=== PATIENT | male | born 1940 ===

== ENCOUNTER 2020-12-05 12:07 | Emergency (ER) | payer MEDICARE ==
[2020-12-05] MEDS ORDERED: SODIUM CHLORIDE 0.9% 500 ML 500 ML IV NR (12:22)
[2020-12-05] MEDS ORDERED: LIDOCAINE (1%) 10 MG/1 ML VIAL 20 ML MDV INFILTRATI NR (12:22)
--- NOTE | 2020-12-05 12:25 | Emergency Department Report ---
ED General Adult HPI - General Chief complaint: Fall Stated complaint: RT EYE LACERATION/FALL PUI?: No Time Seen by Provider: 12/05/20 12:12 Source: patient, EMS (Verbal report received from emergency medical services. E MS documentation not available at time of chart dictation ), RN notes reviewed, old records reviewed Mode of arrival: Stretcher Limitations: Other (Patient is a poor historian and demented) - History of Present Illness Initial comments: The patient was evaluated in the emergency department for symptoms described in the history of present illness. He/she was evaluated in the context of the global COVID-19 pandemic, which necessitated consideration that the patient might be at risk for infection with the virus that causes COVID-19. Institutional protocols and algorithms that pertain to the evaluation of patients at risk for COVID-19 are in a state of rapid change based on information released by regulatory bodies including the CDC and federal and state organizations. These policies and algorithms were followed during the patient's care in the emergency department. Please note that these policies, procedures and recommendations changed on a rapid basis. Please note this patient has an alternative medical record number; [id number] Primary CARE doctor: Dr. Jed Will Past medical history: Renal insufficiency, Alzheimer's dementia with behavioral disturbance. Additional past medical history includes stroke, hemiplegia, aphasia, dysphagia, colonic neoplasm, hypokalemia, depression, restlessness, cognitive deficit, glaucoma The patient is a 80-year-old gentleman. He is sent to the hospital by a local skilled nursing, [facility], for evaluation of unwitnessed fall. The patient is awake, nonverbal, and is not able to answer yes no questions, open ended questions or close ended questions. Patient was here yesterday under the aforementioned medical record number, for fall. As per collateral information from nursing services manager at the aforementioned facility, patient is typically bedbound, and not able to complete activities of daily living without significant assistance. However, she does not describe a dramatic decline in functional status recently, and she endorses no fever, cough, nausea, vomiting, diarrhea. Patient is demented, nonverbal, therefore, he is not able to describe the qualitative nature of her symptoms, exacerbating factors, relieving factors, or aggravating factors. Please see the patient's discharge summary from 2019 from his most recent hospital discharge. -: This morning Location: head Radiation: other Severity scale (0 -10): 0 Quality: other Consistency: other Improves with: other Worsens with: other Associated Symptoms: other - Related Data Allergies Allergy/AdvReac Type Severity Reaction Status Date / Time No Known Allergies Allergy Unverified 12/05/20 12:29 ED Review of Systems ROS: Stated complaint: RT EYE LACERATION/FALL Other details as noted in HPI Comment: Unobtainable due to pts medical conditions (Review of systems as per nursing team at nursing facility) ED Past Medical Hx - Social History Smoking Status: Unknown if ever smoked ED Physical Exam - General Limitations: Other (Patient is awake, nonverbal, poor historian and demented) General appearance: in no apparent distress - Head Head exam: Present: normocephalic, other (There is a right supraorbital hematoma and laceration) - Eye Eye exam: Present: normal appearance, PERRL - ENT ENT exam: Present: mucous membranes moist, TM's normal bilaterally, normal external ear exam, other (There is no nasal septal hematoma. There is no hemotympanum) - Neck Neck exam: Present: normal inspection. Absent: tenderness, meningismus - Respiratory Respiratory exam: Present: normal lung sounds bilaterally, decreased breath sounds. Absent: respiratory distress - Cardiovascular Cardiovascular Exam: Present: normal rhythm, bradycardia, normal heart sounds. Absent: tachycardia, irregular rhythm, systolic murmur, diastolic murmur, rubs, gallop - GI/Abdominal GI/Abdominal exam: Present: soft. Absent: distended, tenderness, guarding, rebound, rigid, pulsatile mass - Rectal Rectal exam: Present: deferred - Extremities Exam Extremities exam: Present: normal inspection, pedal edema (1+ edema bilateral lower extremities), other (2+ pulses noted in the bilateral upper and lower extremities. There is no palpable cord. negative Homans sign. Muscular compartments are soft. The pelvis is stable.). Absent: calf tenderness - Back Exam Back exam: Present: normal inspection. Absent: tenderness, CVA tenderness (R), CVA tenderness (L), paraspinal tenderness, vertebral tenderness - Neurological Exam Neurological exam: Present: altered (The patient is awake. The patient is nonverbal. There is no obvious facial droop.), other (Detailed neurologic examination limited secondary to patient's inability to communicate and underlying dementia.) - Psychiatric Psychiatric exam: Present: other (The patient is nonverbal) - Skin Skin exam: Present: warm, abrasion, ecchymosis, other (Right supraorbital abrasion and ecchymosis) ED Course Vital Signs 12/05/20 12/05/20 12/05/20 12:20 12:21 12:28 Temperature 97.7 F Pulse Rate 56 L 55 L Respiratory 12 16 16 Rate Blood Pressure 117/41 [Left] O2 Sat by Pulse 100 100 Oximetry O2 Sat by Pulse Oximetry [ Digit-Finger] 12/05/20 13:51 Temperature Pulse Rate Respiratory Rate Blood Pressure [Left] O2 Sat by Pulse Oximetry O2 Sat by Pulse 99 Oximetry [ Digit-Finger] - Reevaluation(s) Reevaluation #1: 12/05/20 13:06 Differential diagnosis, including but not limited to: Fall, closed head injury, intracranial injury, spinal injury, pneumonia, urinary tract infection, electrolyte derangement, renal insufficiency, elevated CK, dementia Assessment and plan: 80-year-old gentleman, status post unwitnessed fall, who is afebrile with reassuring vital signs, protecting airway, does not appear to be in any acute distress. This is reportedly his second fall within the past 24 hours. We will obtain appropriate laboratory studies to exclude metabolic crisis, thyroid issue, urinary tract infection etc. We will obtain CT scan of the brain and cervical spine. We will obtain x-ray the chest, and pelvis. Laceration has been repaired by myself. Reassess after initial data points. Reevaluation #2: 12/05/20 14:45 Patient observed in this ER for hours without clinical decompensation. Noncontrast CT scan of the brain and cervical spine negative for acute findings. X-ray of the pelvis, chest negative for acute findings. Laboratory studies unremarkable and nonactionable at this time. Patient resting comfortably on a stretcher, and in no acute distress. Patient required a thorough medical evaluation after complaint of recurrent fall, and after appropriate imaging studies, and screening laboratory studies, it does not appear that an emergent condition has been identified at this time which would require inpatient hospitalization or admission. - Laceration /Wound Repair Right Upper Lateral Eye Wound Location: face Wound Length (cm): 1 Wound's Depth, Shape: stellate Wound Explored: no foreign body removed Irrigated w/ Saline (ccs): 250 Anesthesia: 1% Lidocaine Volume Anesthetic (ccs): 3 Wound Repaired With: sutures Suture Size/Type: 5:0 (Monofilament, interrupted) Number of Sutures: 3 Layer Closure?: No Sterile Dressing Applied?: Yes - Pulse Oximetry Interpretation Digit-Finger Initial Pulse Oximetry Readin O2 Sat by Pulse Oximetry: 99 Actions Taken: none ED Medical Decision Making - Lab Data Result diagrams: 12/05/20 12:39 12/05/20 12:39 Vital Signs (72 hours) 12/05/20 12/05/20 12/05/20 12:20 12:21 12:28 Temperature 97.7 F Pulse Rate 56 L 55 L Respiratory 12 16 16 Rate Blood Pressure 117/41 [Left] O2 Sat by Pulse 100 100 Oximetry Lab Results 12/05/20 Range/Units 12:39 WBC 3.5 L (4.5-11.0) K/mm3 RBC 3.58 L (3.65-5.03) M/mm3 Hgb 11.2 L (11.8-15.2) gm/dl Hct 34.3 L (35.5-45.6) % MCV 96 H (84-94) fl MCH 31 (28-32) pg MCHC 33 (32-34) % RDW 14.5 (13.2-15.2) % Plt Count 305 (140-440) K/mm3 Lab Results 12/05/20 12/05/20 12/05/20 Range/Units 12:05 12:39 12:39 WBC (4.5-11.0) K/mm3 RBC (3.65-5.03) M/mm3 Hgb (11.8-15.2) gm/dl Hct (35.5-45.6) % MCV (84-94) fl MCH (28-32) pg MCHC (32-34) % RDW (13.2-15.2) % Plt Count (140-440) K/mm3 PT 13.3 (12.2-14.9) Sec. INR 1.03 (0.87-1.13) APTT 32.3 (24.2-36.6) Sec. Sodium 143 (137-145) mmol/L Potassium 5.0 (3.6-5.0) mmol/L Chloride 108.5 H (98-107) mmol/L Carbon Dioxide 27 (22-30) mmol/L Anion Gap 13 mmol/L BUN 23 H (9-20) mg/dL Creatinine 1.2 (0.8-1.3) mg/dL Estimated GFR 58 ml/min BUN/Creatinine Ratio 19 % Glucose 100 (75-100) mg/dL Calcium 8.9 (8.4-10.2) mg/dL Magnesium (1.7-2.3) mg/dL Total Bilirubin 0.40 (0.1-1.2) mg/dL AST 44 H (5-40) units/L ALT 39 (7-56) units/L Alkaline Phosphatase 135 H (35-129) units/L Total Creatine Kinase (55-170) units/L Total Protein 7.1 (6.3-8.2) g/dL Albumin 3.6 L (3.9-5) g/dL Albumin/Globulin Ratio 1.0 % TSH (0.270-4.200) mlU/mL Urine Color Yellow (Yellow) Urine Turbidity Clear (Clear) Urine pH 5.0 (5.0-7.0) Ur Specific [place] 1.016 (1.003-1.030) Urine Protein <15 mg/dl (Negative) mg/dL Urine Glucose (UA) Neg (Negative) mg/dL Urine Ketones Neg (Negative) mg/dL Urine Blood Neg (Negative) Urine Nitrite Neg (Negative) Urine Bilirubin Neg (Negative) Urine Urobilinogen < 2.0 (<2.0) mg/dL Ur Leukocyte Esterase Neg (Negative) Urine WBC (Auto) 1.0 (0.0-6.0) /HPF Urine RBC (Auto) 2.0 (0.0-6.0) /HPF Urine Mucus Few /HPF Salicylates (2.8-20.0) mg/dL Acetaminophen (10.0-30.0) ug/mL 12/05/20 12/05/20 12/05/20 Range/Units 12:39 12:39 12:39 WBC 3.5 L (4.5-11.0) K/mm3 RBC 3.58 L (3.65-5.03) M/mm3 Hgb 11.2 L (11.8-15.2) gm/dl Hct 34.3 L (35.5-45.6) % MCV 96 H (84-94) fl MCH 31 (28-32) pg MCHC 33 (32-34) % RDW 14.5 (13.2-15.2) % Plt Count 305 (140-440) K/mm3 PT (12.2-14.9) Sec. INR (0.87-1.13) APTT (24.2-36.6) Sec. Sodium (137-145) mmol/L Potassium (3.6-5.0) mmol/L Chloride (98-107) mmol/L Carbon Dioxide (22-30) mmol/L Anion Gap mmol/L BUN (9-20) mg/dL Creatinine (0.8-1.3) mg/dL Estimated GFR ml/min BUN/Creatinine Ratio % Glucose (75-100) mg/dL Calcium (8.4-10.2) mg/dL Magnesium 2.40 H (1.7-2.3) mg/dL Total Bilirubin (0.1-1.2) mg/dL AST (5-40) units/L ALT (7-56) units/L Alkaline Phosphatase (35-129) units/L Total Creatine Kinase 217 H (55-170) units/L Total Protein (6.3-8.2) g/dL Albumin (3.9-5) g/dL Albumin/Globulin Ratio % TSH 3.650 (0.270-4.200) mlU/mL Urine Color (Yellow) Urine Turbidity (Clear) Urine pH (5.0-7.0) Ur Specific [place] (1.003-1.030) Urine Protein (Negative) mg/dL Urine Glucose (UA) (Negative) mg/dL Urine Ketones (Negative) mg/dL Urine Blood (Negative) Urine Nitrite (Negative) Urine Bilirubin (Negative) Urine Urobilinogen (<2.0) mg/dL Ur Leukocyte Esterase (Negative) Urine WBC (Auto) (0.0-6.0) /HPF Urine RBC (Auto) (0.0-6.0) /HPF Urine Mucus /HPF Salicylates (2.8-20.0) mg/dL Acetaminophen (10.0-30.0) ug/mL 12/05/20 12/05/20 Range/Units 12:39 12:39 WBC (4.5-11.0) K/mm3 RBC (3.65-5.03) M/mm3 Hgb (11.8-15.2) gm/dl Hct (35.5-45.6) % MCV (84-94) fl MCH (28-32) pg MCHC (32-34) % RDW (13.2-15.2) % Plt Count (140-440) K/mm3 PT (12.2-14.9) Sec. INR (0.87-1.13) APTT (24.2-36.6) Sec. Sodium (137-145) mmol/L Potassium (3.6-5.0) mmol/L Chloride (98-107) mmol/L Carbon Dioxide (22-30) mmol/L Anion Gap mmol/L BUN (9-20) mg/dL Creatinine (0.8-1.3) mg/dL Estimated GFR ml/min BUN/Creatinine Ratio % Glucose (75-100) mg/dL Calcium (8.4-10.2) mg/dL Magnesium (1.7-2.3) mg/dL Total Bilirubin (0.1-1.2) mg/dL AST (5-40) units/L ALT (7-56) units/L Alkaline Phosphatase (35-129) units/L Total Creatine Kinase (55-170) units/L Total Protein (6.3-8.2) g/dL Albumin (3.9-5) g/dL Albumin/Globulin Ratio % TSH (0.270-4.200) mlU/mL Urine Color (Yellow) Urine Turbidity (Clear) Urine pH (5.0-7.0) Ur Specific [place] (1.003-1.030) Urine Protein (Negative) mg/dL Urine Glucose (UA) (Negative) mg/dL Urine Ketones (Negative) mg/dL Urine Blood (Negative) Urine Nitrite (Negative) Urine Bilirubin (Negative) Urine Urobilinogen (<2.0) mg/dL Ur Leukocyte Esterase (Negative) Urine WBC (Auto) (0.0-6.0) /HPF Urine RBC (Auto) (0.0-6.0) /HPF Urine Mucus /HPF Salicylates < 0.3 L (2.8-20.0) mg/dL Acetaminophen 5.0 L (10.0-30.0) ug/mL - EKG Data -: EKG Interpreted by [place] EKG shows normal: sinus rhythm Rate: bradycardia - EKG Data 12/05/20 13:05 EKG interpreted at 12: 35 Sinus rhythm, bradycardia, 49 bpm. Left ventricular hypertrophy, first-degree AV block, IA interval 250 ms. QTc 426 ms. Poor R wave progression. This is an abnormal EKG. This is not a STEMI. Appears to be unchanged when compared to prior EKG from May 2020 - Radiology Data Radiology results: pending, report reviewed, image reviewed Noncontrast CT scan of the brain and cervical spine negative for acute findings. CT CERVICAL SPINE WITHOUT CONTRAST INDICATION: Neck pain after fall. TECHNIQUE: Axial CT images of the spine were obtained. Sagittal and coronal reformatted images were produced. All CT scans at this location are performed using CT dose reduction for ALARA by means of automated exposure control. COMPARISON: Prior CT on 12/04/2020 FINDINGS: ACUTE FRACTURE(S) OR SUBLUXATION: None. SPINAL DEGENERATIVE CHANGES: Similar advanced degenerative change at the atlantodental articulation with likely partial fusion of the anterior arch of C1 and the dens. Unchanged mild generalized spondylosis in the remainder of the cervical spine. PARASPINAL SOFT TISSUES: No soft tissue swelling or other acute abnormalities. ADDITIONAL FINDINGS: There is atherosclerotic calcification in the carotid bulbs bilaterally. IMPRESSION: 1. No acute fracture or subluxation in the spine in neutral position. Signer Name: Sivakumar Fulton MD Signed: 12/05/2020 12:33 PM Workstation Name: Whereoscope CT head/brain wo con INDICATION: Fall. Head pain TECHNIQUE: Routine CT head without contrast. All CT scans at this location are performed using CT dose reduction for ALARA by means of automated exposure control. COMPARISON: Head CT on 12/04/2020 FINDINGS: BRAIN / INTRACRANIAL CONTENTS: No acute hemorrhage, brain edema, mass effect, or hydrocephalus. Normal turpin-white differentiation. Stable moderate global brain atrophy. CALVARIUM/SKULL BASE/CRANIOCERVICAL JUNCTION: No evidence of fracture. ORBITS: No significant abnormality of visua lized orbits. SINUSES / MASTOIDS: Stable chronic opacification right frontal sinus. ADDITIONAL FINDINGS: None. IMPRESSION: 1. No acute intracranial abnormality. No adverse change from the prior exam. Signer Name: Sivakumar Fulton MD Signed: 12/05/2020 12:29 PM Workstation Name: Whereoscope CHEST 1 VIEW INDICATION: fall weakness. COMPARISON: 06/16/2020 FINDINGS: Support devices: None. Heart: Within normal limits. Lungs/Pleura: No acute air space or interstitial disease. Additional findings: No obvious thoracic fracture. IMPRESSION: No acute findings. PELVIS 2 VIEWS INDICATION: fall wea kness. COMPARISON: None. IMPRESSION: No acute osseous injury or diastasis is identified. Normal articulation at both hips. Mild to moderate degenerative changes are noted in the lower lumbar spine and SI joints. Signer Name: Vladimir Mane Jr, MD Signed: 12/05/2020 1:13 PM Workstation Name: [id number] CHEST 1 VIEW INDICATION: fall weakness. COMPARISON: 06/16/2020 FINDINGS: Support devices: None. Heart: Within normal limits. Lungs/Pleura: No acute air space or interstitial disease. Additional findings: No obvious thoracic fracture. IMPRESSION: No acute findings. PELVIS 2 VIEWS INDICATION: fall weakness. COMPARISON: None. IMPRESSION: No acute osseous injury or diastasis is identified. Normal articulation at both hips. Mild to moderate degenerative changes are noted in the lower lumbar spine and SI joints. Signer Name: Vladimir Mane Jr, MD Signed: 12/05/2020 1:13 PM Workstation Name: [id number] Critical care attestation.: If time is entered above; I have spent that time in minutes in the direct care of this critically ill patient, excluding procedure time. ED Disposition Clinical Impression: History of dementia Closed head injury Qualifiers: Encounter type: initial encounter Qualified Code(s): S09.90XA - Unspecified injury of head, initial encounter Fall Qualifiers: Encounter type: initial encounter Qualified Code(s): W19.XXXA - Unspecified fall, initial encounter Laceration of forehead Qualifiers: Encounter type: initial encounter Qualified Code(s): S01.81XA - Laceration without foreign body of other part of head, initial encounter Disposition: DC/TX-70 ANOTHER TYPE HLTHCARE Is pt being admited?: No Does the pt Need Aspirin: No Condition: Good Additional Instructions: We recommend that fall precautions be initiated for this patient while in his personal penitentiary/skilled nursing at all times. Please have a primary care doctor contact medical records department within the next week to follow-up on nonemergent incidental abnormal findings in terms of laboratory studies and radiology studies. Patient may wash forehead abrasion and laceration with gentle soap and water once every 12-24 hours. Bacitracin may be applied o [id number] to the right forehead abrasion once every 24 hours, for 5 to 7 days, taking care to not apply bacitracin to the eyes. Recommend that patient's forehead laceration/sutures be removed in the next 5 days. Patient may follow- up with his primary care doctor, return to the emergency room, or follow-up at an urgent care center for this. Please return to the emergency room right away with new pain, worsened pain, migration of pain, projectile vomiting, change in mental status, confusion, inability to tolerate liquid feeds, new, worsened or different symptoms not present on the initial emergency room evaluation. Referrals: JED WILL MD [Primary Care Provider] - 3-5 Days Time of Disposition: 14:46 (Discharge back to skilled nursing)
[2020-12-05] MEDS ORDERED: SODIUM CHLORIDE IRRI 500 ML 500 ML IR ONE (12:33)
[2020-12-05 12:59] LABS: Hematocrit 34.3 % (35.5-45.6); Hemoglobin 11.2 gm/dl (11.8-15.2); Mean Corpuscular HGB Conc 33 % (32-34); Mean Corpuscular Volume 96 fl (84-94); Platelet Count 305 K/mm3 (140-440); Red Blood Count 3.58 M/mm3 (3.65-5.03); Red Cell Distribution Width 14.5 % (13.2-15.2)
[2020-12-05 13:10] LABS: INR 1.03 (0.87-1.13); Partial Thromboplastin Time 32.3 Sec. (24.2-36.6)
[2020-12-05 13:22] LABS: Albumin 3.6 g/dL (3.9-5); Calcium 8.9 mg/dL (8.4-10.2)
[2020-12-05] MEDS ORDERED: TETANUS,DIPH,PERTUSS(ACELL) VACCINE 0.5 ML SYRINGE IM ONE (13:30)
--- NOTE | 2020-12-05 13:34 | Cat Scan Report ---
CT head/brain wo con INDICATION: Fall. Head pain TECHNIQUE: Routine CT head without contrast. All CT scans at this location are performed using CT dose reduction for ALARA by means of automated exposure control. COMPARISON: Head CT on 12/04/2020 FINDINGS: BRAIN / INTRACRANIAL CONTENTS: No acute hemorrhage, brain edema, mass effect, or hydrocephalus. Angie l turpin-white differentiation. Stable moderate global brain atrophy. CALVARIUM/SKULL BASE/CRANIOCERVICAL JUNCTION: No evidence of fracture. ORBITS: No significant abnormality of visualized orbits. SINUSES / MASTOIDS: Stable chronic opacification right frontal sinus. ADDITIONAL FINDINGS: None. IMPRESSION: 1. No acute intracranial abnormality. No adverse change from the prior exam. Signer Name: Sivakumar Fulton MD Signed: 12/05/2020 1:29 PM Workstation Name: [id number]
--- NOTE | 2020-12-05 13:38 | Cat Scan Report ---
CT CERVICAL SPINE WITHOUT CONTRAST INDICATION: Neck pain after fall. TECHNIQUE: Axial CT images of the spine were obtained. Sagittal and coronal reformatted images were produced. Al l CT scans at this location are performed using CT dose reduction for ALARA by means of automated exp osure control. COMPARISON: Prior CT on 12/04/2020 FINDINGS: ACUTE FRACTURE(S) OR SUBLUXATION: None. SPINAL DEGENERATIVE CHANGES: Similar advanced degenerative change at the atlantodental articulation w ith likely partial fusion of the anterior arch of C1 and the dens. Unchanged mild generalized spondyl osis in the remainder of the cervical spine. PARASPINAL SOFT TISSUES: No soft tissue swelling or other acute abnormalities. ADDITIONAL FINDINGS: There is atherosclerotic calcification in the carotid bulbs bilaterally. IMPRESSION: 1. No acute fracture or subluxation in the spine in neutral position. Signer Name: Sivakumar Fulton MD Signed: 12/05/2020 1:33 PM Workstation Name: [id number]
--- NOTE | 2020-12-05 14:17 | XRay Report ---
CHEST 1 VIEW INDICATION: fall weakness. COMPARISON: 06/16/2020 FINDINGS: Support devices: None. Heart: Within normal limits. Lungs/Pleura: No acute air space or interstitial disease. Additional findings: No obvious thoracic fracture. IMPRESSION: No acute findings. PELVIS 2 VIEWS INDICATION: fall weakness. COMPARISON: None. IMPRESSION: No acute osseous injury or diastasis is identified. Normal articulation at both hips. M ild to moderate degenerative changes are noted in the lower lumbar spine and SI joints. Signer Name: Vladimir Mane Jr, MD Signed: 12/05/2020 2:13 PM Workstation Name: [id number]
[2020-12-05 14:23] LABS: Bilirubin,Urine NEG (Negative); Blood,Urine NEG (Negative); Color,Urine Yellow (Yellow); Mucus,Urine FEW /HPF; Protein,Urine <15 mg/dL mg/dL (Negative); Urobilinogen,Urine < 2.0 mg/dL (<2.0)
[2020-12-05 17:00] VITALS: BP 129/41
--- NOTE | 2020-12-08 11:36 | Electrocardiograph Report ---
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
== END 2020-12-05 17:59 | disposition other institution (70) ==
LOC: ED 12:07
DX: S01.111A Laceration without foreign body of right eyelid and periocular area, initial encounter (principal); S09.90XA Unspecified injury of head, initial encounter; F03.90 Unspecified dementia, unspecified severity, without behavioral disturbance, psychotic disturbance, mood disturbance, and anxiety; W19.XXXA Unspecified fall, initial encounter; Y93.89 Activity, other specified; Y92.89 Other specified places as the place of occurrence of the external cause; Y99.8 Other external cause status
CPT/HCPCS: 36415; 70450; 71045; 72125; 72170; 80053; 80320; 81001; 82550; 83735; 84443; 85027; 85610; 85730; 87086; 90471; 90715; 93005; G0480